=== PATIENT | male | born 1980 | race Hispanic/Latino ===

== ENCOUNTER 2020-02-14 11:09 | Emergency (ER) | payer SELFPAY ==
[2020-02-14] MEDS ORDERED: Sodium Chloride 0.9% 10 ML Syringe FLUSH PRN (11:56)
--- NOTE | 2020-02-14 11:57 | EDM.PDOC ---
ED HPI GENERAL MEDICAL PROBLEM - General Chief Complaint: General Stated Complaint: HIGH BLOOD SUGAR Time Seen by Provider: 02/14/20 11:30 Source of Information: Reports: Patient History Limitations: Reports: No Limitations - History of Present Illness INITIAL COMMENTS - FREE TEXT/NARRATIVE: Patient is a 39-year-old male who presents with complaints of elevated blood sugar. He states that for the last week and a half he has had increased weakness, polyuria, and polydipsia. He bought a home glucose monitor and stated that his home reading was 540. 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 At that time he was on metformin for elevated blood sugars. States that he took that for about a month and then he stopped because "it was better ". He states that one of his family members was on metformin and sent him some metformin 1000 mg pills which he has been taking twice daily for the last 2 days. He is tolerating this well he does not have any abdominal upset or diarrhea associated with the medication. He has had no blurry vision or abdominal pain. - Related Data Allergies Allergy/AdvReac Type Severity Reaction Status Date / Time No Known Allergies Allergy Verified 02/14/20 11:29 Home Meds: Home Meds metFORMIN HCl [Metformin HCl] 1,000 mg PO BID #60 tablet 02/14/20 [Rx] Past Medical History Musculoskeletal History: Reports: Other (See Below) Other Musculoskeletal History: right arm injury for tendon and nerve damage Social & Family History - Tobacco Use Smoking Status *Q: Current Every Day Smoker Years of Tobacco use: 13 Packs/Tins Daily: 0.5 - Caffeine Use Caffeine Use: Reports: Coffee, Soda, Tea - Recreational Drug Use Recreational Drug Use: No ED ROS GENERAL - Review of Systems Review Of Systems: See Below Constitutional: Reports: No Symptoms. Denies: Fever, Chills, Decreased Appetite , Weight Loss HEENT: Reports: No Symptoms Respiratory: Reports: No Symptoms Cardiovascular: Reports: No Symptoms Endocrine: Reports: Fatigue, High Glucose, Polydypsia, Polyuria GI/Abdominal: Reports: No Symptoms : Reports: No Symptoms Musculoskeletal: Reports: No Symptoms Skin: Reports: No Symptoms Neurological: Reports: No Symptoms Psychiatric: Reports: No Symptoms Hematologic/Lymphatic: Reports: No Symptoms Immunologic: Reports: No Symptoms ED EXAM, GENERAL - Physical Exam Exam: See Below Exam Limited By: No Limitations General Appearance: Alert, WD/WN, No Apparent Distress, Obese Respiratory/Chest: No Respiratory Distress, Lungs Clear, Normal Breath Sounds, No Accessory Muscle Use, Chest Non-Tender Cardiovascular: Normal Peripheral Pulses, Regular Rate, Rhythm, No Edema, No Gallop, No JVD, No Murmur, No Rub GI/Abdominal: Normal Bowel Sounds, Soft, Non-Tender, No Organomegaly, No Distention, No Abnormal Bruit, No Mass Neurological: Alert, Oriented, CN II-XII Intact, Normal Cognition, Normal Gait, Normal Reflexes, No Motor/Sensory Deficits Psychiatric: Normal Affect, Normal Mood Skin Exam: Warm, Dry, Intact, Normal Color, No Rash Course - Vital Signs Last Recorded V/S: Last Vital Signs Temp 97.5 F 02/14/20 11:33 Pulse 106 H 02/14/20 11:33 Resp 20 02/14/20 11:33 BP 141/93 H 02/14/20 11:33 Pulse Ox 94 L 02/14/20 11:33 - Orders/Labs/Meds Orders: Active Orders 24 hr Category Date Time Status Peripheral IV Care [RC] . DIRECTED Care 02/14/20 11:56 Active Peripheral IV Insertion Adult [OM.PC] Stat Oth 02/14/20 11:56 Ordered Labs: Laboratory Tests 02/14/20 02/14/20 02/14/20 Range/Units 11:35 12:10 12:10 WBC 7.74 (4.23-9.07) K/mm3 RBC 5.21 (4.63-6.08) M/mm3 Hgb 15.4 (13.7-17.5) gm/dl Hct 44.7 (40.1-51.0) % MCV 85.8 (79.0-92.2) fl MCH 29.6 (25.7-32.2) pg MCHC 34.5 (32.2-35.5) g/dl RDW Std Deviation 41.7 (35.1-43.9) fL Plt Count 262 (163-337) K/mm3 MPV 10.4 (9.4-12.3) fl Neut % (Auto) 55.4 (34.0-67.9) % Lymph % (Auto) 32.3 (21.8-53.1) % Hill % (Auto) 8.8 (5.3-12.2) % Eos % (Auto) 2.7 (0.8-7.0) Baso % (Auto) 0.4 (0.1-1.2) % Neut # (Auto) 4.29 (1.78-5.38) K/mm3 Lymph # (Auto) 2.50 (1.32-3.57) K/mm3 Hill # (Auto) 0.68 (0.30-0.82) K/mm3 Eos # (Auto) 0.21 (0.04-0.54) K/mm3 Baso # (Auto) 0.03 (0.01-0.08) K/mm3 Sodium 138 (136-145) mEq/L Potassium 4.2 (3.5-5.1) mEq/L Chloride 101 (98-107) mEq/L Carbon Dioxide 24 (21-32) mEq/L Anion Gap 17.2 H (5-15) BUN 23 H (7-18) mg/dL Creatinine 1.1 (0.7-1.3) mg/dL Est Cr Clr Drug Dosing 111.79 mL/min Estimated GFR (MDRD) > 60 (>60) mL/min BUN/Creatinine Ratio 20.9 H (14-18) Glucose 328 H (74-106) mg/dL POC Glucose 302 H (70-105) mg/dL Hemoglobin A1c (4.50-6.20) % Calcium 9.1 (8.5-10.1) mg/dL Total Bilirubin 0.5 (0.2-1.0) mg/dL AST 21 (15-37) U/L ALT 52 (16-63) U/L Alkaline Phosphatase 99 (46-116) U/L Total Protein 7.3 (6.4-8.2) g/dl Albumin 3.8 (3.4-5.0) g/dl Globulin 3.5 gm/dL Albumin/Globulin Ratio 1.1 (1-2) Lipase 221 (73-393) U/L Urine Color (Yellow) Urine Appearance (Clear) Urine pH (5.0-8.0) Ur Specific [place] (1.005-1.030) Urine Protein (Negative) Urine Glucose (UA) (Negative) Urine Ketones (Negative) Urine Occult Blood (Negative) Urine Nitrite (Negative) Urine Bilirubin (Negative) Urine Urobilinogen (0.2-1.0) Ur Leukocyte Esterase (Negative) Urine RBC (0-5) /hpf Urine WBC (0-5) /hpf Ur Epithelial Cells (0-5) /hpf Urine Bacteria (FEW) /hpf Urine Mucus (FEW) /hpf 02/14/20 02/14/20 02/14/20 Range/Units 12:10 13:00 13:41 WBC (4.23-9.07) K/mm3 RBC (4.63-6.08) M/mm3 Hgb (13.7-17.5) gm/dl Hct (40.1-51.0) % MCV (79.0-92.2) fl MCH (25.7-32.2) pg MCHC (32.2-35.5) g/dl RDW Std Deviation (35.1-43.9) fL Plt Count (163-337) K/mm3 MPV (9.4-12.3) fl Neut % (Auto) (34.0-67.9) % Lymph % (Auto) (21.8-53.1) % Hill % (Auto) (5.3-12.2) % Eos % (Auto) (0.8-7.0) Baso % (Auto) (0.1-1.2) % Neut # (Auto) (1.78-5.38) K/mm3 Lymph # (Auto) (1.32-3.57) K/mm3 Hill # (Auto) (0.30-0.82) K/mm3 Eos # (Auto) (0.04-0.54) K/mm3 Baso # (Auto) (0.01-0.08) K/mm3 Sodium (136-145) mEq/L Potassium (3.5-5.1) mEq/L Chloride (98-107) mEq/L Carbon Dioxide (21-32) mEq/L Anion Gap (5-15) BUN (7-18) mg/dL Creatinine (0.7-1.3) mg/dL Est Cr Clr Drug Dosing mL/min Estimated GFR (MDRD) (>60) mL/min BUN/Creatinine Ratio (14-18) Glucose (74-106) mg/dL POC Glucose 257 H (70-105) mg/dL Hemoglobin A1c 9.70 H (4.50-6.20) % Calcium (8.5-10.1) mg/dL Total Bilirubin (0.2-1.0) mg/dL AST (15-37) U/L ALT (16-63) U/L Alkaline Phosphatase (46-116) U/L Total Protein (6.4-8.2) g/dl Albumin (3.4-5.0) g/dl Globulin gm/dL Albumin/Globulin Ratio (1-2) Lipase (73-393) U/L Urine Color Yellow (Yellow) Urine Appearance Clear (Clear) Urine pH 5.5 (5.0-8.0) Ur Specific [place] > or = 1.030 (1.005-1.030) Urine Protein Negative (Negative) Urine Glucose (UA) 2+ H (Negative) Urine Ketones Negative (Negative) Urine Occult Blood Negative (Negative) Urine Nitrite Negative (Negative) Urine Bilirubin Negative (Negative) Urine Urobilinogen 0.2 (0.2-1.0) Ur Leukocyte Esterase Negative (Negative) Urine RBC 0-5 (0-5) /hpf Urine WBC Not seen (0-5) /hpf Ur Epithelial Cells 0-5 (0-5) /hpf Urine Bacteria Few (FEW) /hpf Urine Mucus Few (FEW) /hpf Meds: Medications Discontinued Medications Generic Name Dose Route Start Last Admin Trade Name Freq PRN Reason Stop Dose Admin Sodium Chloride 1,000 mls @ 999 mls/hr 02/14/20 12:00 02/14/20 12:17 Normal Saline IV 999 mls/hr ASDIRECTED THU Administration Insulin Human Regular 5 unit 02/14/20 12:43 02/14/20 12:55 Humulin R SUBCUT 02/14/20 12:44 5 unit ONETIME ONE Administration Sodium Chloride 10 ml 02/14/20 11:56 02/14/20 12:17 Saline Flush FLUSH 10 ml ASDIRECTED PRN Administration Keep Vein Open - Re-Assessments/Exams Free Text/Narrative Re-Assessment/Exam: 02/14/20 12:52 Patient's blood sugar is elevated at 328 by the CMP. I have ordered insulin 5 units subcutaneous to be given now. We will recheck his blood sugar about 45 minutes. 02/14/20 13:29 Hematology was significant for a mildly elevated anion gap at 17.2, glucose elevated at 328, and hemoglobin A1c 9.7. Lipase was normal. Urinalysis did show 2+ glucose with no ketones. Discussed with the patient that based on his A1c of 9.7, he has likely had an elevated blood sugar for at least the last 3 months. We will recheck his blood sugar approximately 45 minutes after the insulin was given. If this comes back okay, we will discharge him home with a prescription for metformin and instructions to follow-up with a primary care provider for ongoing management of his type 2 diabetes. 02/14/20 1345 Recheck of the blood glucose after the 5 units of subcutaneous insulin was 257. Discussed with the patient the importance of follow-up with her primary care provider for ongoing management of his hyperglycemia. I have written a prescription for metformin 1000 mg twice daily as tolerated. Discharge instructions as documented. Departure - Departure Time of Disposition: 13:44 Disposition: Home, Self-Care 01 Condition: Fair Clinical Impression: Hyperglycemia - Discharge Information *PRESCRIPTION DRUG MONITORING PROGRAM REVIEWED*: No *COPY OF PRESCRIPTION DRUG MONITORING REPORT IN PATIENT MIKEY: No Prescriptions: metFORMIN HCl [Metformin HCl] 1,000 mg PO BID #60 tablet Instructions: Hyperglycemia, [id number] Referrals: PCP,None [Primary Care Provider] - Forms: ED Department Discharge Additional Instructions: You were seen in the emergency department today for elevated blood sugars. Your work-up included blood work and urinalysis. Your glucose was found to be elevated at 328. Your hemoglobin A1c which is a three-month indicator of your blood sugars was elevated at 9.7 indicating that your blood sugar has been elevated for at least 3 months. You have been provided a prescription for metformin. Take this twice a day as prescribed. If you find that this is upsetting your stomach or causing diarrhea, you may cut back to once a day and then gradually increase to twice a day. Limit your intake of carbohydrates and increase your exercise as tolerated. Recommend that you call to schedule an appointment with a primary care provider for ongoing management of your elevated blood sugars. A list of providers has been given to you. If you should experience any worsening symptoms, please do not hesitate to return to ER. Sepsis Event Note - Evaluation Sepsis Screening Result: No Definite Risk - Focused Exam Vital Signs: Vital Signs Temp Pulse Resp BP Pulse Ox 02/14/20 11:33 97.5 F 106 H 20 141/93 H 94 L Date Exam was Performed: 02/14/20 Time Exam was Performed: 19:14 - My Orders Last 24 Hours: My Active Orders 02/14/20 11:56 Peripheral IV Care [RC] . DIRECTED Peripheral IV Insertion Adult [OM.PC] Stat - Assessment/Plan Last 24 Hours: My Active Orders 02/14/20 11:56 Peripheral IV Care [RC] . DIRECTED Peripheral IV Insertion Adult [OM.PC] Stat
[2020-02-14] MEDS ORDERED: Sodium Chloride 0.9% 1,000 ML IV SCH (12:00)
[2020-02-14] MEDS ORDERED: Insulin Regular, Human 100 Units/ML 3 ML Vial SUBCUT ONE (12:43)
[2020-02-14 13:05] LABS: HEMOGLOBIN A1C 9.7 % (4.50-6.20)
== END 2020-02-14 13:55 | disposition home or self-care (01) ==
LOC: JD.ED 11:09
DX: R73.9 Hyperglycemia, unspecified (principal); F17.210 Nicotine dependence, cigarettes, uncomplicated
CPT/HCPCS: 36415; 80053; 81001; 82962; 83036; 83690; 85025; 96360; 99283; J1815; J7030